=== PATIENT | female | born 2000 | race Two or more races ===

== ENCOUNTER 2018-11-03 01:11 | Emergency (ER) | payer OTHER ==
[~2018-11-03] VITALS: Ht 152.4 cm; Wt 61.2 kg
[2018-11-03 01:15] VITALS: BP 125/76
--- NOTE | 2018-11-03 01:46 | PHYS DOC ---
Past Medical History Past Medical History: No Pertinent History Past Surgical History: No Surgical History Alcohol Use: None Drug Use: None Adult General Chief Complaint Chief Complaint: LACERATION/AVULSION HPI HPI Patient is a 18 year old female who presents with complaining laceration. Patient states she has slipped in the shower and landed on left side of her head and had laceration of left earlobe without loss of consciousness or other injuries. Patient rated her pain as a moderate pain and doesn't want to have pain medication in ER. Patient denies . Patient is up-to-date with her tetanus immobilization Review of Systems Review of Systems Constitutional: Denies fever or chills [] Eyes: Denies change in visual acuity, redness, or eye pain [] HENT: Denies nasal congestion or sore throat [] Respiratory: Denies cough or shortness of breath [] Cardiovascular: No additional information not addressed in HPI [] GI: Denies abdominal pain, nausea, vomiting, bloody stools or diarrhea [] : Denies dysuria or hematuria [] Musculoskeletal: Denies back pain or joint pain [] Integument: Denies rash or skin lesions, reports laceration [] Neurologic: Denies headache, focal weakness or sensory changes [] Endocrine: Denies polyuria or polydipsia [] All other systems were reviewed and found to be within normal limits, except as documented in this note. Allergies Allergies Allergies Coded Allergies Type Severity Reaction Last Updated Verified No Known Drug Allergies 12/24/13 No Physical Exam Physical Exam Constitutional: Well developed, well nourished, mild distress, non-toxic appearance. [] HENT: Normocephalic, atraumatic, 0.5 cm transverse laceration in left earlobe in the middle of ear oropharynx moist, no oral exudates, nose normal. [] Eyes: PERRLA, EOMI, conjunctiva normal, no discharge. [] Neck: Normal range of motion, no tenderness, supple, no stridor. [] Cardiovascular:Heart rate regular rhythm, no murmur [] Lungs & Thorax: Bilateral breath sounds clear to auscultation [] Neurologic: Alert and oriented X 3, normal motor function, normal sensory function, no focal deficits noted. [] Psychologic: Affect normal, judgement normal, mood normal. [] Current Patient Data Vital Signs Vital Signs Date Time Temp Pulse Resp B/P (MAP) Pulse Ox O2 Delivery O2 Flow Rate FiO2 11/03/18 01:15 98.3 94 16 125/76 (92) 98 Room Air 98.3 EKG EKG [] Radiology/Procedures Radiology/Procedures [] Course & Med Decision Making Course & Med Decision Making Evaluation of patient in ER showed 18-year-old female patient with laceration of left earlobe that was repaired with Dermabond and Steri-Strip. Dragon Disclaimer Dragon Disclaimer This electronic medical record was generated, in whole or in part, using a voice recognition dictation system. Departure Departure Impression: Primary Impression: Laceration of left earlobe Disposition: HOME, SELF-CARE (at 0206) Condition: IMPROVED Referrals: NO PCP (PCP) Patient Instructions: Tissue Adhesive Wound Care Additional Instructions: Keep wound clean and dry Drink plenty of liquids Follow-up with your primary care physician in 3-5 days Return to ER if not getting better Laceration Repair Lac Repair Indication: Left earlobe laceration Procedure: The patient was placed in the appropriate position and left earlobe laceration was repaired with Dermabond and Steri-Strip. Total repaired wound length:0.5 cm Other Items: [OTHER ITEMS] The patient tolerated the procedure well. Complications: none. Problem Qualifiers Primary Impression: Laceration of left earlobe Encounter type: initial encounter Qualified Codes: S01.312A - Laceration without foreign body of left ear, initial encounter DIANE KAPLAN MD Nov 03, 2018 01:46
== END 2018-11-03 02:10 | disposition home or self-care (01) ==
LOC: ER 01:11
DX: S01.312A Laceration without foreign body of left ear, initial encounter (principal); W18.2XXA Fall in (into) shower or empty bathtub, initial encounter; Y92.89 Other specified places as the place of occurrence of the external cause; Y93.89 Activity, other specified; Y99.8 Other external cause status
CPT/HCPCS: 12011; 99283-25